=== PATIENT | male | born 1950 | race Caucasian/White ===

== ENCOUNTER 2022-03-27 10:04 | Emergency (ER) | payer MEDICARE ==
[~2022-03-27] VITALS: Ht 170.2 cm; Wt 87.0 kg
[2022-03-27 11:09] VITALS: BP 133/65
[2022-03-27] MEDS ORDERED: BEBTELOVIMAB 175 MG/2 ML VIAL IV ONE (11:45)
--- NOTE | 2022-03-27 15:10 | NUR ---
IV DC'D PT BEING DISCHARGED DRESSING APPLIED
== END 2022-03-27 15:11 | disposition home or self-care (01) ==
LOC: ER 10:05
DX: U07.1 COVID-19 (principal); J02.9 Acute pharyngitis, unspecified; R05.9 Cough, unspecified; R50.9 Fever, unspecified; I25.10 Atherosclerotic heart disease of native coronary artery without angina pectoris; Z98.890 Other specified postprocedural states; Z88.8 Allergy status to other drugs, medicaments and biological substances
CPT/HCPCS: 99283; M0222; Q0222

== ENCOUNTER 2024-10-16 11:14 | Outpatient (CLI) | payer MEDICARE ==
[~2024-10-16 11:14] MED LIST: ASPI81TA52 PO
== END 2024-10-16 23:59 | disposition home or self-care (01) ==
LOC: RAD 11:14
PROVIDERS: ATTEND Specialist
DX: R13.12 Dysphagia, oropharyngeal phase (principal); R05.9 Cough, unspecified; G47.33 Obstructive sleep apnea (adult) (pediatric)
CPT/HCPCS: 74230